=== PATIENT | female | born 1930 | race Caucasian/White ===

== ENCOUNTER 2018-03-22 14:48 | Emergency (ER) | payer MEDICARE, MEDICAID ==
[~2018-03-22] VITALS: Ht 152.4 cm; Wt 61.7 kg
[~2018-03-22 14:48] MED LIST: amlodipine; atenolol; metformin
[2018-03-22] MEDS ORDERED: IV NORMAL SALINE 500 ML BAG IV ONE (15:00)
[2018-03-22] MEDS ORDERED: MULT1TAB73 PO (15:05)
[2018-03-22] MEDS ORDERED: METF10004 PO (15:05)
[2018-03-22] MEDS ORDERED: ASPI-605 PO (15:05)
[2018-03-22] MEDS ORDERED: QUET25TA PO (15:05)
[2018-03-22] MEDS ORDERED: INDA1.255 PO (15:05)
[2018-03-22] MEDS ORDERED: DILT240C88 PO (15:05)
[2018-03-22] MEDS ORDERED: ATEN50TA PO (15:05)
[2018-03-22] MEDS ORDERED: POTA10CA43 PO (15:05)
[2018-03-22 15:11] LABS: BASOPHILS # (AUTO) 0.1 K/uL (0.0-8.0); BASOPHILS % (AUTO) 0.9 % (0.0-2.0); EOSINOPHILS # (AUTO) 0.2 K/uL (0.0-0.7); HEMATOCRIT 35.8 % (31.2-41.9); HEMOGLOBIN 12.4 g/dL (10.9-14.3); LYMPHOCYTES # (AUTO) 2.7 K/uL (20.0-40.0); LYMPHOCYTES % (AUTO) 27.4 % (20.5-51.5); MEAN CORPUSCULAR HEMOGLOBIN 31.9 uug (24.7-32.8); MEAN CORPUSCULAR HGB CONC 35 g/dL (32.3-35.6); MONOCYTES # (AUTO) 1.2 K/uL (2.0-10.0); NEUTROPHILS # (AUTO) 5.8 K/uL (1.8-8.9); NEUTROPHILS % (AUTO) 57.7 % (38.5-71.5); PLATELET COUNT (AUTO) 217 K/uL (179-408); RED BLOOD CELL COUNT(AUTO) 3.88 MIL/uL (3.63-4.92)
[2018-03-22 15:21] LABS: CARBON DIOXIDE 32 mmol/L (21-32); CHLORIDE 101 mmol/L (98-107); CREATININE 1.1 mg/dL (0.6-1.3); GLUCOSE 121 mg/dL (74-106); POTASSIUM 3.7 mmol/L (3.5-5.1); UREA NITROGEN, BLOOD 18 mg/dL (7-18)
[2018-03-22 15:36] LABS: ALANINE AMINOTRANSFERASE 18 U/L (14-59); ALKALINE PHOSPHATASE 91 U/L (50-136); ASPARTATE AMINOTRANSFERASE 13 U/L (15-37); BILIRUBIN,DIRECT 0.1 mg/dL (0.0-0.2); BILIRUBIN,TOTAL 0.2 mg/dL (0.2-1.0); LIPASE 153 U/L (73-393); TOTAL PROTEIN, SERUM 6.8 g/dL (6.4-8.2)
--- NOTE | 2018-03-22 16:06 | NUR ---
Deepika-anal care provided. Dinner tray ordered, pending ambulance tile picker.
[2018-03-22 16:10] LABS: *BILIRUBIN,URIN NEGATIVE (NEGATIVE); *BLOOD, URINE Trace-intact (NEGATIVE); *COLOR,URINE YELLOW (YELLOW); *KETONES,URINE NEGATIVE (NEGATIVE); *PROTEIN,URINE NEGATIVE (NEGATIVE); *UROBILINOGEN,URINE 0.2 E.U./dl (NORMAL); LEUKOCYTE ESTERASE ,URINE TRACE (NEGATIVE); NITRITE, URINE POSITIVE (NEGATIVE); UGLUCOSE NEGATIVE (NEGATIVE)
[2018-03-22 16:16] LABS: *CLARITY,URINE HAZY (CLEAR)
[2018-03-22 16:17] LABS: BACTERIA,URINE MANY /HPF (NONE SEEN); MUCUS,URINE FEW /LPF (0-FEW); SQUAMOUS EPITHELIAL CELL,UR FEW /HPF (NONE SEEN)
[2018-03-22] MEDS ORDERED: LEVOFLOXACIN 750 MG TABLET PO ONE (16:30)
[2018-03-22] MEDS ORDERED: LEVOFLOXACIN 750 MG TABLET ONE (16:32)
--- NOTE | 2018-03-22 16:38 | NUR ---
Patient is eating cookie and drinking tea with good appetite.
--- NOTE | 2018-03-22 16:51 | NUR ---
2nd reinaldo-anal care done, no acute change in condition seen.Patient discharged to retirement. Written and verbal after care instructions [facility] [place] Patient's nurse verbalizes understanding of instructions, pending ambulance picker feeder still.
--- NOTE | 2018-03-22 17:29 | NUR ---
Frequent explaination in Farsi and [place] regarding her disposition, reorientation done as well, 1:1 sitter observation maintained.
--- NOTE | 2018-03-22 17:41 | NUR ---
Patient is eating dinner tray with good appetite. NAD
--- NOTE | 2018-03-22 18:01 | NUR ---
Patient voided 2x. [facility] ambulance is here. Hands off report given to EMT Laurence, unit 327. Patient left ER in stable condition.
== END 2018-03-22 18:03 | disposition home or self-care (01) ==
LOC: ER 14:56
DX: R60.9 Edema, unspecified (principal); I48.91 Unspecified atrial fibrillation; I10 Essential (primary) hypertension; E11.9 Type 2 diabetes mellitus without complications; E78.00 Pure hypercholesterolemia, unspecified; Z88.0 Allergy status to penicillin; Z79.84 Long term (current) use of oral hypoglycemic drugs; Z79.82 Long term (current) use of aspirin; Z79.899 Other long term (current) drug therapy
CPT/HCPCS: 36415; 51701; 71045; 80048; 80076; 81001; 83690; 84484; 85025; 85730; 87086; 93005; 93971; 99285; A4663 ×2; C1758; J7040; 70030-TC